=== PATIENT | male | born 1940 | race Caucasian/White ===

== ENCOUNTER 2018-05-27 11:48 | Emergency (ER) | payer OTHER, BC ==
[2018-05-27 12:16] VITALS: PULSE 64; TEMP 97.7; BMI 24.7
--- NOTE | 2018-05-27 12:37 | PDOC ---
Attending Attestation - Resident Resident Name: Salo Brown - ED Attending Attestation I have performed the following: I have examined & evaluated the patient, The case was reviewed & discussed with the resident, I agree w/resident's findings & plan, Exceptions are as noted - HPI HPI: 05/27/18 12:36 77yo M hx HTN presents to the ED with 10 days of non-productive cough. Pt reports fever 6 days ago, but none since. Reports cough is improving but his is here as a pt and wanted to get checked for the flu. Pt's daughter was recently diagnosed with the flu. Denies headache, runny nose, sore throat, cp, sob, abd pain, n/v/d, LE edema. Did not get flu shot this year. - Physicial Exam PE: 05/27/18 13:00 GENERAL: Awake, alert, and fully oriented, in no acute distress HEAD: No signs of trauma EYES: PERRLA, EOMI, sclera anicteric, conjunctiva clear ENT: Auricles normal inspection, hearing grossly normal, nares patent, oropharynx clear without exudates. Moist mucosa NECK: Normal ROM, supple, no lymphadenopathy, JVD, or masses LUNGS: Breath sounds equal, clear to auscultation bilaterally. No wheezes, and no crackles HEART: Regular rate and rhythm, normal S1 and S2, no murmurs, rubs or gallops ABDOMEN: Soft, nontender, normoactive bowel sounds. No guarding, no rebound. No masses EXTREMITIES: Normal range of motion, no edema. No clubbing or cyanosis. No cords, erythema, or tenderness NEUROLOGICAL: Normal speech, cranial nerves intact, equal strength and sensation b/l SKIN: Warm, Dry, normal turgor, no rashes or lesions noted. - Medical Decision Making 05/27/18 13:00 77yo M presents to the ED with cough and resolved fever 5 days ago. Vitals wnl. Exam wnl, pt very well appearing. Plan check cxr, flu, and reassess. 05/27/18 14:06 CXR clear, flu neg Likely viral syndrome with bronchitis Pt is very well appearing with normal vitals Stable for DC home I discussed the physical exam findings, ancillary test results and final diagnoses with the patient. I answered all of the patient's questions. The patient was satisfied with the care received and felt comfortable with the discharge plan and treatment plan. The patient will call their primary care physician within 24 hours to arrange follow-up and will return to the Emergency Department with any new, persistent or worsening symptoms.
--- NOTE | 2018-05-27 12:43 | PDOC ---
History of Present Illness - General Chief Complaint: Respiratory Stated Complaint: COUGH Time Seen by Provider: 05/27/18 11:49 History Source: Patient Exam Limitations: No Limitations - History of Present Illness Initial Comments: 05/27/18 12:38 77 yo male pmh of HTN presents to the ED for 10 days of a lingering cough. Pt states the cough is non productive and has recently improved but would like to be assessed since his daughter tested positive for the flu. Pt does admit to 1 day of fevers 4 days ago that resolved, denies diffuse body aches, BARR, SOB, CP, abdominal pain, sore throat, F/C/N/V. Past History - Past Medical History Allergies/Adverse Reactions: Allergies Allergy/AdvReac Type Severity Reaction Status Date / Time No Known Allergies Allergy Verified 05/27/18 11:49 Home Medications: Ambulatory Orders Azilsartan Med/Chlorthalidone [Edarbyclor 40-12.5 mg Tablet] 1 each PO DAILY Carvedilol 25 mg PO DAILY 05/27/18 COPD: No - Suicide/Smoking/Psychosocial Hx Smoking History: Never smoked Have you smoked in the past 12 months: No Information on smoking cessation initiated: No Hx Alcohol Use: No Drug/Substance Use Hx: No Review of Systems - Review of Systems Constitutional: No: Chills, Fever HEENTM: No: Ear Pain Respiratory: Yes: Cough. No: Shortness of Breath, Wheezing, Productive cough Cardiac (ROS): No: Chest Pain ABD/GI: No: Constipated, Diarrhea, Nausea, Vomiting : No: Burning, Dysuria, Flank Pain, Hematuria Musculoskeletal: No: Back Pain Neurological: No: Numbness, Paresthesia, Weakness *Physical Exam - Vital Signs Last Vital Signs Temp Pulse Resp BP Pulse Ox 97.7 F 64 20 114/42 L 98 05/27/18 11:48 05/27/18 11:48 05/27/18 11:48 05/27/18 11:48 05/27/18 11:48 - Physical Exam General Appearance: Yes: Nourished, Appropriately Dressed. No: Apparent Distress HEENT: positive: EOMI, Hearing Grossly Normal. negative: Tonsillar Exudate, Tonsillar Erythema, TM Erythema Neck: negative: Supple, Lymphadenopathy (R), Lymphadenopathy (L) Respiratory/Chest: positive: Lungs Clear. negative: Respiratory Distress, Accessory Muscle Use, Crackles, Stridor, Wheezing Cardiovascular: positive: Regular Rhythm, Regular Rate, S1, S2. negative: Edema , JVD, Murmur Vascular Pulses: Dorsalis-Pedis (R): 3+, Doralis-Pedis (L): 3+ Gastrointestinal/Abdominal: positive: Flat, Soft. negative: Pulsatile Mass, Distended, Guarding, Rebound, Tenderness Extremity: positive: Normal Capillary Refill Integumentary: positive: Normal Color, Dry, Warm Neurologic: positive: Fully Oriented, Alert, Normal Mood/Affect, Normal Response Moderate Sedation - Procedure Monitoring Vital Signs: Procedure Monitoring Vital Signs Temperature 97.7 F 05/27/18 11:48 Pulse Rate 64 05/27/18 11:48 Respiratory Rate 20 05/27/18 11:48 Blood Pressure 114/42 L 05/27/18 11:48 O2 Sat by Pulse Oximetry (%) 98 05/27/18 11:48 ED Treatment Course - RADIOLOGY Radiology Studies Ordered: Category Date Time Status CHEST PA & LAT [RAD] Stat Radiology 05/27/18 12:38 Ordered Medical Decision Making - Medical Decision Making 05/27/18 13:54 77 yo male presents to the ED with a non productive cough that is improved and concerns of being flu positive. Vitals WNL CXR no acute pathology Flu is pending and pt will be called if positive Pt is safe for DC home and follow up with PCP at this time with strict return precautions and increase fluid intake 05/27/18 14:02 Flu negative *DC/Admit/Observation/Transfer Diagnosis at time of Disposition: Cough - Discharge Dispostion Disposition: HOME Condition at time of disposition: Stable Decision to Admit order: No - Referrals - Patient Instructions Printed Discharge Instructions: DI for Chronic Bronchitis, DI for Acute Bronchitis Additional Instructions: Please see your Family Doctor within the next 48 hours. Take over the counter Tylenol for fevers and increase your fluid intake. Return to the ER for high fevers, difficulty breathing, inability to eat or drink. Thank you - Post Discharge Activity
[2018-05-27 13:19] VITALS: BP 109/58
== END 2018-05-27 14:06 | disposition home or self-care (01) ==
LOC: FER 11:48
DX: R05 Cough (principal); I10 Essential (primary) hypertension
CPT/HCPCS: 71046-TC-FY; 87804; 99281-25